=== PATIENT | female | born 2000 | race Caucasian/White ===

== ENCOUNTER 2020-01-31 14:22 | Outpatient (CLI) | payer BC, OTHER, SELFPAY ==
[2020-01-31 14:22] VITALS: BMI 30.2
[2020-01-31 15:00] VITALS: TEMP 36.9
[2020-01-31] MEDS: pantoprazole 40 mg SDV IVP (16:23)
[2020-01-31] MEDS: lactated ringers 1,000 ML 999 ML IV ×2 (16:24→17:08)
[2020-01-31 16:58] LABS: Bilirubin Urine Neg (NEGATIVE); Blood Urine Neg (Negative); Glucose Urine UA Norm (Normal); Ketones Urine Negative (Negative); Leukocyte Esterase Urine Trace (Negative); Nitrate Urine Negative (Negative); Protein Urine Neg (Negative); Specific Gravity, Urine 1.005 (1.005-1.030); Urine Appearance Hazy (CLEAR); Urine Color Yellow (Yellow); Urobilinogen Urine Norm (Negative); pH Urine 7 (5-7)
[2020-01-31 16:59] LABS: Add Urine Culture? No; Bacteria Urine 1+; RBC Urine 0-4 /hpf (0-2); WBC Urine 0-4 /hpf (0-5)
--- NOTE | 2020-01-31 17:00 | PC.NURSE ---
Addendum entered by Leonora Paulino RN 01/31/20 18:33: Dr Shay here reviewing labs and tracing, orders to discharge pt home once fluid bolus complete and no other concerns noted. Original Note: Dr Shay here
--- NOTE | 2020-01-31 17:08 | PC.NURSE ---
Pt sipping water and requesting something to snack . Pt given crackers and water. Tolerating well.
[2020-01-31 18:27] VITALS: BP 116/73; PULSE 83
[2020-01-31 18:30] VITALS: BP 116/73; PULSE 83; RESP 17; TEMP 36.8
== END 2020-01-31 18:30 | disposition home or self-care (01) ==
LOC: OPOB 14:57 → OBGYN 14:59
PROVIDERS: Visit Provider Family Medicine
DX: O21.9 Vomiting of pregnancy, unspecified (principal); Z3A.00 Weeks of gestation of pregnancy not specified
CPT/HCPCS: 59025; 81001; 96375; 99211; C9113